=== PATIENT | female | born 2000 | race Caucasian/White ===

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

== ENCOUNTER 2024-03-18 22:36 | Emergency (ER) | payer OTHER ==
--- NOTE | 2024-03-18 23:50 | ED ---
Female Urogenital HPI - General Chief complaint: Vaginal Bleeding Stated complaint: 9 wk - vaginal bleeding Time Seen by Provider: 03/18/24 22:55 Source: patient Mode of arrival: ambulatory Limitations: no limitations - History of Present Illness Initial comments: 23-year-old female currently presenting with chief complaint of vaginal bleeding. Patient states that the bleeding started this evening. She admits to a mild amount of central pelvic cramping. She is a G2, P1. Had light spotting 2 days ago and was seen at [facility], she had a normal ultrasound and her hCG was around 64,000. She currently follows with [facility] through [place]. She is having no other symptoms. States that she is currently on an antibiotic due to a UTI found at her hospital visit on Friday. - Related Data Home Medications Medication Instructions Recorded Confirmed valACYclovir HCL [Valtrex] 1 tab PO BID 12/17/21 12/17/21 Allergies Allergy/AdvReac Type Severity Reaction Status Date / Time cephalexin [From Keflex] Allergy Swelling Verified 03/18/24 22:39 Review of Systems ROS Statement: Those systems with pertinent positive or pertinent negative responses have been documented in the HPI. ROS Other: All systems not noted in ROS Statement are negative. Past Medical History Additional Past Medical History / Comment(s): congenital heart disease. History of Any Multi-Drug Resistant Organisms: None Reported Additional Past Surgical History / Comment(s): total of 4 open heart surgeries. Past Psychological History: No Psychological Hx Reported Smoking Status: Never smoker Past Alcohol Use History: None Reported Past Drug Use History: None Reported General Exam Limitations: no limitations General appearance: alert, in no apparent distress Head exam: Present: atraumatic, normocephalic Eye exam: Present: normal appearance, EOMI Neck exam: Present: normal inspection. Absent: meningismus Respiratory exam: Absent: respiratory distress Cardiovascular Exam: Present: regular rate GI/Abdominal exam: Present: soft. Absent: distended, tenderness, guarding, rebound, rigid External exam: Present: normal external exam Speculum exam: Present: vaginal bleeding (Bleeding is easily cleared from the vault, cervix is closed) By manual exam: Present: normal by manual exam. Absent: cervical motion tenderness, adnexal tenderness, adnexal mass, uterine enlargement, uterine tenderness Neurological exam: Present: alert, oriented X3 Psychiatric exam: Present: normal affect, normal mood Skin exam: Present: warm, dry Course Vital Signs 03/18/24 03/19/24 03/19/24 22:38 00:56 02:30 Temperature 98.3 F 98.0 F 98.1 F Pulse Rate 90 75 84 Respiratory 18 18 16 Rate Blood Pressure 137/87 116/76 105/66 O2 Sat by Pulse 100 99 98 Oximetry 03/19/24 03:25 Temperature 98.0 F Pulse Rate 76 Respiratory 18 Rate Blood Pressure 115/75 O2 Sat by Pulse 99 Oximetry Medical Decision Making - Medical Decision Making Was pt. sent in by a medical professional or institution (, PA, CARDIOPULMONARY TECHNICIAN AND EEG TECH, urgent care, hospital, or halfway...) When possible be specific @ -No Did you speak to anyone other than the patient for history (EMS, parent, family, police, friend...)? What history was obtained from this source @ -No Did you review nursing and triage notes (agree or disagree)? Why? @ -I reviewed and agree with nursing and triage notes Were old charts reviewed (outside hosp., previous admission, EMS record, old EKG, old radiological studies, urgent care reports/EKG's, halfway records)? Report findings @ -No old charts were reviewed Differential Diagnosis (chest pain, altered mental status, abdominal pain women, abdominal pain men, vaginal bleeding, weakness, fever, dyspnea, syncope, headache, dizziness, GI bleed, back pain, seizure, CVA, palpatations, mental health, musculoskeletal)? @ -MDM Differential Vaginal Bleeding: Spontaneous , threatened , molar , ectopic , bloody show, incompetent cervix, abruptioplacenta, placenta previa, uterine rupture, dysfunctional uterine bleeding, hemorrhage, uterine fibroids. ... This is not meant to be an all-inclusive list EKG interpreted by me (3pts min.). @ -As above X-rays interpreted by me (1pt min.). @ -None done CT interpreted by me (1pt min.). @ -None done U/S interpreted by me (1pt. min.). @ -Ultrasound shows single live intrauterine gestation at 8 weeks and 4 days What testing was considered but not performed or refused? (CT, X-rays, U/S, labs)? Why? @ -None What meds were considered but not given or refused? Why? @ -None Did you discuss the management of the patient with other professionals (professionals i.e. , PA, CARDIOPULMONARY TECHNICIAN AND EEG TECH, lab, RT, psych nurse, social media specialist, parts lister, teacher, interface control officer, patient case manager)? Give summary @ -No Was smoking cessation discussed for >3mins.? @ -No Was critical care preformed (if so, how long)? @ -No Were there social determinants of health that impacted care today? How? (Homelessness, low income, unemployed, alcoholism, drug addiction, transport ation, low edu. Level, literacy, decrease access to med. care, long term, rehab)? @ -No Was there de-escalation of care discussed even if they declined (Discuss DNR or withdrawal of care, Hospice)? DNR status @ -No What co-morbidities impacted this encounter? (DM, HTN, Smoking, COPD, CAD, Cancer, CVA, ARF, Chemo, Hep., AIDS, mental health diagnosis, sleep apnea, morbid obesity)? @ -None Was patient admitted / discharged? Hospital course, mention meds given and route, prescriptions, significant lab abnormalities, going to OR and other pertinent info. @ -23-year-old female currently 9 weeks presenting with chief complaint of vaginal bleeding that started tonight. History and physical exam are conducted. On pelvic exam there is a small amount of blood in the vaginal vault that is easily cleared, cervix is closed. Patient states that prior to pelvic exam she did pass a large clot that fit in the palm of her hand. WBC 10.7, likely due to . Hemoglobin is stable at 14.2. The patient is hemodynamically stable. hCG is 70,117.2. Ultrasound shows single live intrauterine gestation 8 weeks and 4 days. She has blood type a positive. Urine is contaminated with blood, patient states that she is currently on antibiotics for UTI diagnosed on Friday. She has an appointment with her [facility] at 10 AM later today. She is educated on today's findings. She is provided with a an order for repeat beta hCG in 48 hours. Instructed to keep her follow-up appointment today. Discharged home. Follow-up with PCP. Report back to ER with any new or worsening symptoms. Discussed return parameters and answered all questions. Patient conveyed verbal understanding and agreed to the plan. I discussed this case in detail with my attending Dr. López Undiagnosed new problem with uncertain prognosis? @ -No Drug Therapy requiring intensive monitoring for toxicity (Heparin, Nitro, Insulin, Cardizem)? @ -No Were any procedures done? @ -No Diagnosis/symptom? @ -Threatened Acute, or Chronic, or Acute on Chronic? @ -Acute Uncomplicated (without systemic symptoms) or Complicated (systemic symptoms)? @ -Uncomplicated Side effects of treatment? @ -No Exacerbation, Progression, or Severe Exacerbation? @ -No Poses a threat to life or bodily function? How? (Chest pain, [place], [place], pneumonia, PE, COPD, DKA, ARF, appy, cholecystitis, CVA, Diverticulitis, Homicidal, Suicidal, threat to staff... and all critical care pts) @ -Low likelihood - Lab Data Result diagrams: 03/19/24 00:48 03/19/24 00:48 Lab Results 03/19/24 03/19/24 03/19/24 Range/Units 00:48 00:48 00:48 WBC 10.7 H (3.8-10.6) k/uL RBC 4.73 (3.80-5.40) m/uL Hgb 14.2 (11.4-16.0) gm/dL Hct 41.5 (34.0-46.0) % MCV 87.7 (80.0-100.0) fL MCH 30.0 (25.0-35.0) pg MCHC 34.2 (31.0-37.0) g/dL RDW 13.0 (11.5-15.5) % Plt Count 347 (150-450) k/uL MPV 7.1 Neutrophils % 69 % Lymphocytes % 20 % Monocytes % 7 % Eosinophils % 2 % Basophils % 1 % Neutrophils # 7.3 (1.3-7.7) k/uL Lymphocytes # 2.1 (1.0-4.8) k/uL Monocytes # 0.7 (0-1.0) k/uL Eosinophils # 0.3 (0-0.7) k/uL Basophils # 0.1 (0-0.2) k/uL Sodium 137 (137-145) mmol/L Potassium 4.1 (3.5-5.1) mmol/L Chloride 109 H (98-107) mmol/L Carbon Dioxide 21 L (22-30) mmol/L Anion Gap 7 mmol/L BUN 8 (7-17) mg/dL Creatinine 0.53 (0.52-1.04) mg/dL Est GFR (CKD-EPI)AfAm >90 (>60 ml/min/1.73 sqM) Est GFR (CKD-EPI)NonAf >90 (>60 ml/min/1.73 sqM) Glucose 84 (74-99) mg/dL Calcium 9.2 (8.4-10.2) mg/dL Total Bilirubin 0.4 (0.2-1.3) mg/dL AST 20 (14-36) U/L ALT 17 (4-34) U/L Alkaline Phosphatase 46 (38-126) U/L Total Protein 6.7 (6.3-8.2) g/dL Albumin 4.2 (3.5-5.0) g/dL HCG, Quant 27962.2 mIU/mL Urine Color Urine Appearance (Clear) Urine RBC (0-5) /hpf Urine WBC (0-5) /hpf Urine Bacteria (None) /hpf Urine Mucus (None) /hpf Blood Type A Positive Blood Type Recheck No Previous Record Bld Type Recheck Status CABO Indicated 03/19/24 Range/Units 01:27 WBC (3.8-10.6) k/uL RBC (3.80-5.40) m/uL Hgb (11.4-16.0) gm/dL Hct (34.0-46.0) % MCV (80.0-100.0) fL MCH (25.0-35.0) pg MCHC (31.0-37.0) g/dL RDW (11.5-15.5) % Plt Count (150-450) k/uL MPV Neutrophils % % Lymphocytes % % Monocytes % % Eosinophils % % Basophils % % Neutrophils # (1.3-7.7) k/uL Lymphocytes # (1.0-4.8) k/uL Monocytes # (0-1.0) k/uL Eosinophils # (0-0.7) k/uL Basophils # (0-0.2) k/uL Sodium (137-145) mmol/L Potassium (3.5-5.1) mmol/L Chloride (98-107) mmol/L Carbon Dioxide (22-30) mmol/L Anion Gap mmol/L BUN (7-17) mg/dL Creatinine (0.52-1.04) mg/dL Est GFR (CKD-EPI)AfAm (>60 ml/min/1.73 sqM) Est GFR (CKD-EPI)NonAf (>60 ml/min/1.73 sqM) Glucose (74-99) mg/dL Calcium (8.4-10.2) mg/dL Total Bilirubin (0.2-1.3) mg/dL AST (14-36) U/L ALT (4-34) U/L Alkaline Phosphatase (38-126) U/L Total Protein (6.3-8.2) g/dL Albumin (3.5-5.0) g/dL HCG, Quant mIU/mL Urine Color Brown Urine Appearance Cloudy H (Clear) Urine RBC >182 H (0-5) /hpf Urine WBC 30 H (0-5) /hpf Urine Bacteria Occasional H (None) /hpf Urine Mucus Many H (None) /hpf Blood Type Blood Type Recheck Bld Type Recheck Status Disposition Clinical Impression: Threatened Disposition: HOME SELF-CARE Condition: Good Instructions (If sedation given, give patient instructions): Threatened Miscarriage (ED) Additional Instructions: Follow-up with your [facility]. Report back to ER with any new or worsening symptoms. Obtain repeat beta hCG in 48 hours. Is patient prescribed a controlled substance at d/c from ED?: No Referrals: None,Stated [Primary Care Provider] - 1-2 days Time of Disposition: 03:14
[2024-03-19] MEDS: SODIUM CHLORIDE 0.9% 500 ML 500 ML IV ONE (00:54)
[2024-03-19 01:03] LABS: Basophils # (A) 0.1 k/uL (0-0.2); Basophils % (A) 1 %; Eosinophils # (A) 0.3 k/uL (0-0.7); Eosinophils % (A) 2 %; HCT 41.5 % (34.0-46.0); HGB 14.2 gm/dL (11.4-16.0); Lymphocytes # (A) 2.1 k/uL (1.0-4.8); Lymphocytes % (A) 20 %; MCHC 34.2 g/dL (31.0-37.0); MCV 87.7 fL (80.0-100.0); Mean Platelet Volume 7.1; Monocytes # (A) 0.7 k/uL (0-1.0); Monocytes % (A) 7 %; Neutrophils # (A) 7.3 k/uL (1.3-7.7); Neutrophils % (A) 69 %; Platelet Count 347 k/uL (150-450); RBC 4.73 m/uL (3.80-5.40); WBC 10.7 k/uL (3.8-10.6)
[2024-03-19 01:12] LABS: ALT 17 U/L (4-34); AST 20 U/L (14-36); African American GFR (CKD) >90 (>60 ml/min/1.73 sqM); Albumin 4.2 g/dL (3.5-5.0); Alkaline Phosphatase 46 U/L (38-126); Anion Gap 7 mmol/L; Blood Urea Nitrogen 8 mg/dL (7-17); Calcium 9.2 mg/dL (8.4-10.2); Carbon Dioxide 21 mmol/L (22-30); Chloride 109 mmol/L (98-107); Glucose 84 mg/dL (74-99); Non-African American GFR(CKD) >90 (>60 ml/min/1.73 sqM); Potassium 4.1 mmol/L (3.5-5.1); Sodium 137 mmol/L (137-145); Total Bilirubin 0.4 mg/dL (0.2-1.3); Total Protein 6.7 g/dL (6.3-8.2)
[2024-03-19 02:19] LABS: Bacteria,Urine Occasional /hpf; Mucus,Urine Many /hpf
--- NOTE | 2024-03-19 02:24 | US ---
EXAM: US First Trimester , Transabdominal CLINICAL HISTORY: bleeding TECHNIQUE: Real-time transabdominal obstetrical ultrasound of the maternal pelvis and a first trimester with image documentation. COMPARISON: No relevant prior studies available. FINDINGS: Gestation: Single live intrauterine gestation. The crown-rump length is 2.0 cm, corresponding to 8 weeks 4 days. heart rate is documented at 163 bpm. Placenta/amniotic fluid: Cannot be adequately evaluated due to the early gestational age. Uterus/cervix: Unremarkable. No myometrial mass. Ovaries: Unremarkable. No mass. Free fluid: No free fluid. IMPRESSION: Single live intrauterine gestation at 8 weeks 4 days.
[2024-03-19 02:33] LABS: HCG,Quantitative Serum 70117.2 mIU/mL
[2024-03-19 03:05] LABS: Appearance,Urine Cloudy (Clear); Color,Urine Brown
[2024-03-19 03:06] LABS: RBC,Urine >182 /hpf (0-5); WBC,Urine 30 /hpf (0-5)
[2024-03-19 03:49] VITALS: BP 115/75; PULSE 76; RESP 18; TEMP 98
== END 2024-03-19 03:27 | disposition home or self-care (01) ==
LOC: EC 22:36
DX: O20.0 Threatened abortion (principal); Z3A.08 8 weeks gestation of pregnancy; Z88.1 Allergy status to other antibiotic agents
CPT/HCPCS: 36415; 76801; 80053; 81001; 84702; 85025; 86900; 86901; 87086; 99284